=== PATIENT | female | born 1975 | race Caucasian/White ===

== ENCOUNTER 2017-10-02 15:13 | Emergency (ER) | payer OTHER ==
[2017-10-02 15:55] LABS: BILIRUBIN,URINE NEGATIVE (NEG); CLARITY,URINE CLEAR; COLOR,URINE YELLOW; GLUCOSE,URINE NEGATIVE (NEG); NITRITE,URINE NEGATIVE (NEG); PROTEIN,URINE NEGATIVE (NEG-TRACE); UROBILINOGEN,URINE 0.2 mg/dL (0.2 mg/dL)
[2017-10-02 16:05] LABS: ADD MAN DIFF? NO; BACTERIA,URINE 0 /HPF (0-FEW); RBC,URINE OCC /HPF (0-2); SQUAMOUS EPITHELIAL CELL,UR MOD /LPF; WBC,URINE OCC /HPF (0-4)
[2017-10-02] MEDS: KETOROLAC 30 MG/ML INJ. IV (16:10)
[2017-10-02] MEDS: IV NORMAL SALINE 1000ML BAG 1,000 ML IV (16:10)
[2017-10-02] MEDS: ONDANSETRON PF 4 MG/2 ML VIAL. IV (16:10)
[2017-10-02 16:15] LABS: BASO % 1 % (0-3); EOS % 1 % (0-3); HEMATOCRIT 40.6 % (36.0-47.0); LYMPH # 1.9 x10^3/uL (1.0-4.8); LYMPH % 28 % (24-48); MEAN CORPUSCULAR HEMOGLOBIN 30 pg (25-35); MEAN CORPUSCULAR HGB CONC 35 g/dL (31-37); MEAN CORPUSCULAR VOLUME 88 fL (79-100); MONO # 0.4 x10^3/uL (0.0-1.1); MONO % 6 % (0-9); NEUT # 4.4 x10^3uL (1.8-7.7); NEUT % 65 % (31-73); PLATELET COUNT 244 x10^3/uL (140-400); RED BLOOD COUNT 4.62 x10^6/uL (3.50-5.40); RED CELL DISTRIBUTION WIDTH 12.2 % (11.5-14.5); WHITE BLOOD COUNT 6.7 x10^3/uL (4.0-11.0)
[2017-10-02 16:21] LABS: ANION GAP 10 (6-14); BLOOD UREA NITROGEN 8 mg/dL (7-20); BUN/CREATININE RATIO 10 (6-20); CALCIUM 8.9 mg/dL (8.5-10.1); CARBON DIOXIDE 26 mmol/L (21-32); CHLORIDE 103 mmol/L (98-107); CREATININE 0.8 mg/dL (0.6-1.0); GLUCOSE 105 mg/dL (70-99); SODIUM 139 mmol/L (136-145)
[2017-10-02 16:27] LABS: ALBUMIN 3.8 g/dL (3.4-5.0); ALK PHOS 79 U/L (46-116); ALT (SGPT) 15 U/L (14-59); AST (SGOT) 12 U/L (15-37); TOTAL BILIRUBIN 0.2 mg/dL (0.2-1.0); TOTAL PROTEIN 7.6 g/dL (6.4-8.2)
== END 2017-10-02 19:25 | disposition home or self-care (01) ==
LOC: ER 15:13
DX: R10.9 Unspecified abdominal pain (principal); R30.0 Dysuria; R31.9 Hematuria, unspecified; R11.0 Nausea; Z87.442 Personal history of urinary calculi; Z90.710 Acquired absence of both cervix and uterus
CPT/HCPCS: 36415; 74176; 76700; 80053; 81001; 85025; 96361; 96374; 96375; 99285-25; J1885; J2405; J7030

== ENCOUNTER 2018-01-31 18:42 | Emergency (ER) | payer OTHER ==
[2018-01-31] MEDS: IV NORMAL SALINE 1000ML BAG 1,000 ML IV (20:05)
[2018-01-31] MEDS: KETOROLAC 30 MG/ML INJ. IV (20:05)
[2018-01-31 20:07] LABS: ADD MAN DIFF? NO
[2018-01-31 20:11] LABS: BASO % 0 % (0-3); EOS # 0.1 x10^3/uL (0.0-0.7); EOS % 1 % (0-3); HEMATOCRIT 37.5 % (36.0-47.0); HEMOGLOBIN 13.3 g/dL (12.0-15.5); LYMPH # 1.3 x10^3/uL (1.0-4.8); LYMPH % 23 % (24-48); MEAN CORPUSCULAR HEMOGLOBIN 31 pg (25-35); MEAN CORPUSCULAR HGB CONC 36 g/dL (31-37); MEAN CORPUSCULAR VOLUME 89 fL (79-100); MONO # 0.5 x10^3/uL (0.0-1.1); MONO % 8 % (0-9); NEUT # 3.9 x10^3uL (1.8-7.7); NEUT % 68 % (31-73); PLATELET COUNT 230 x10^3/uL (140-400); RED BLOOD COUNT 4.24 x10^6/uL (3.50-5.40); RED CELL DISTRIBUTION WIDTH 11.8 % (11.5-14.5); WHITE BLOOD COUNT 5.7 x10^3/uL (4.0-11.0)
[2018-01-31 20:18] LABS: ANION GAP 7 (6-14); BLOOD UREA NITROGEN 10 mg/dL (7-20); BUN/CREATININE RATIO 13 (6-20); CALCIUM 8.7 mg/dL (8.5-10.1); CARBON DIOXIDE 29 mmol/L (21-32); CHLORIDE 103 mmol/L (98-107); CREATININE 0.8 mg/dL (0.6-1.0); GLUCOSE 137 mg/dL (70-99); MONONUCLEOSIS PATIENT NEGATIVE (NEGATIVE); NEGATIVE OBC MONO NEG; POSITIVE OBC MONO POS; POTASSIUM 3.7 mmol/L (3.5-5.1); SODIUM 139 mmol/L (136-145)
[2018-01-31 20:24] LABS: ALBUMIN 3.3 g/dL (3.4-5.0); ALBUMIN/GLOBULIN RATIO 0.8 (1.0-1.7); ALK PHOS 56 U/L (46-116); ALT (SGPT) 24 U/L (14-59); AST (SGOT) 14 U/L (15-37); TOTAL BILIRUBIN 0.2 mg/dL (0.2-1.0); TOTAL PROTEIN 7.3 g/dL (6.4-8.2)
[2018-01-31 20:36] LABS: INFLUENZA A PATIENT NEGATIVE (NEGATIVE); INFLUENZA B PATIENT NEGATIVE (NEGATIVE); OBC FLU VALID
[2018-01-31 21:39] LABS: BILIRUBIN,URINE NEGATIVE (NEG); CLARITY,URINE CLEAR; COLOR,URINE YELLOW; GLUCOSE,URINE NEGATIVE (NEG); NITRITE,URINE NEGATIVE (NEG); PH,URINE 7.5; PROTEIN,URINE NEGATIVE (NEG-TRACE)
[2018-01-31 21:47] LABS: BACTERIA,URINE 0 /HPF (0-FEW); RBC,URINE 0 /HPF (0-2); SQUAMOUS EPITHELIAL CELL,UR MOD /LPF; WBC,URINE 0 /HPF (0-4)
[2018-02-01 10:39] LABS: NEGATIVE OBC STREP NEG; POSITIVE OBC STREP POS
== END 2018-01-31 22:23 | disposition home or self-care (01) ==
LOC: ER 18:42
DX: J02.9 Acute pharyngitis, unspecified (principal); Z87.442 Personal history of urinary calculi; Z88.8 Allergy status to other drugs, medicaments and biological substances
CPT/HCPCS: 36415; 80053; 81001; 85025; 86308; 87070; 87804; 87804-59; 87880; 96374; 99284-25; J1885; J7030

== ENCOUNTER → 2019-06-09 | Outpatient (CLI) | payer OTHER ==
[2018-01-31 19:11] VITALS: BP 130/82
[~2019-06-09] MED LIST: CYCL5TAB PO; ESCITALOPRAM OX10 MG PO; GABA600T7 PO; OXYC1TAB15 PO; PRED20TA PO
--- NOTE | 2019-06-09 17:36 | KCIC ---
3 view study of the right knee Clinical indications: Right knee pain. Progressing posterior right knee pain in the recent months. FINDINGS: No acute fracture or dislocation or lytic process is seen. No significant arthritic change of the patellofemoral joint compartment is seen. There is mild degenerative joint space narrowing without spurring of the medial tibiofemoral joint compartment. There is mild degenerative joint space narrowing with minimal degenerative spurring of the lateral tibiofemoral joint compartment. IMPRESSION: Mild primary degenerative osteoarthritis. Electronically signed by: Serge Mars MD (06/09/2019 5:33 PM) [place] [id number]
--- NOTE | 2019-06-10 09:47 | KCIC ---
EXAM: MRI RIGHT KNEE DATE: 06/09/2019 4:15 PM CLINICAL INDICATION: Right knee pain COMPARISON: None. TECHNIQUE: Multiplanar, multisequence MRI of the right knee was performed without contrast. FINDINGS: No significant right knee joint effusion. Trace Sullivan's cyst. ACL and PCL are intact. The MCL, fibular collateral ligament, biceps femoris, IT band are intact. The popliteus is normal in signal and morphology. Extensor mechanism is intact. Neutral patellar tracking. Edema and deformity of the suprapatellar fat pad may be seen with anterior knee pain/impingement. Medial meniscus: Intact Lateral meniscus: Intact No evidence for fracture or osteonecrosis. No significant chondral thinning. IMPRESSION: 1. Edema and deformity within the suprapatellar fat pad may be seen with anterior knee pain/impingement. 2. Otherwise, no evidence for internal derangement of the right knee. Electronically signed by: Hao Velasquez MD (06/10/2019 9:44 AM) [id number]
== END | disposition home or self-care (01) ==
LOC: KCIC 15:25
PROVIDERS: ATTEND Anesthesiology
DX: M17.11 Unilateral primary osteoarthritis, right knee (principal); M25.861 Other specified joint disorders, right knee; M25.461 Effusion, right knee; Z90.710 Acquired absence of both cervix and uterus
CPT/HCPCS: 73562; 73721

== ENCOUNTER → 2019-09-19 | Outpatient (CLI) | payer OTHER ==
[2018-01-31 19:11] VITALS: BP 130/82
--- NOTE | 2019-09-19 16:08 | KCIC ---
STUDY: MRI of the left knee without contrast INDICATION: Trauma to the anterior knee with persistent pain. COMPARISON: None. TECHNIQUE: Multiplanar MR imaging of the left knee performed without the use of intravenous or intra-articular contrast. FINDINGS: Menisci: Intact medial and lateral menisci. Cruciate ligaments: Intact ACL and PCL. Collateral ligaments: Intact. Tendons: No significant tendinosis or tear of the extensor complex. The additional tendons at the knee are unremarkable. Cartilage: Patellofemoral: Intact. Lateral compartment: Intact. Medial compartment: Intact. Bones: No acute fracture or marrow contusion. Miscellaneous: The TT-TG distance is within normal limits. Minimal edema-like signal of the suprapatellar fat pad. No significant joint effusion. Very small Sullivan's cyst. IMPRESSION: 1. No acute internal derangement of the left knee. 2. Very small Sullivan's cyst. 3. Minimal edema-like signal within the suprapatellar fat pad which was also noted within the contralateral knee on the June 09, 2019 exam. In the setting of a TT-TG distance that is within normal limits this is unlikely related to impingement and could be secondary to normal vascular signal or conceivably contusion given reported trauma to this region. Electronically signed by: PASCUAL JOY MD (09/19/2019 4:05 PM) [facility] [id number]
== END | disposition home or self-care (01) ==
LOC: KCIC MRI 12:12
PROVIDERS: ATTEND Registered Nurse
DX: M71.22 Synovial cyst of popliteal space [Baker], left knee (principal)
CPT/HCPCS: 73721

== ENCOUNTER 2019-12-07 18:41 | Emergency (ER) | payer OTHER ==
[~2019-12-07] VITALS: Ht 154.9 cm; Wt 63.6 kg
[2019-12-07] MEDS ORDERED: IV NORMAL SALINE 1000ML BAG 1,000 ML IV SCH (19:09)
[2019-12-07] MEDS ORDERED: ONDANSETRON PF 4 MG/2 ML VIAL. IV ONE (19:15)
[2019-12-07] MEDS ORDERED: KETOROLAC 30 MG/ML VIAL. IV ONE (19:15)
[2019-12-07 19:20] LABS: BILIRUBIN,URINE NEGATIVE (NEG); CLARITY,URINE CLEAR; COLOR,URINE YELLOW; NITRITE,URINE NEGATIVE (NEG); PROTEIN,URINE NEGATIVE (NEG-TRACE)
[2019-12-07 19:25] LABS: BACTERIA,URINE MODERATE /HPF (0-FEW); RBC,URINE 0 /HPF (0-2); SQUAMOUS EPITHELIAL CELL,UR MOD /LPF; WBC,URINE RARE /HPF (0-4)
--- NOTE | 2019-12-07 19:29 | PHYS DOC ---
Past Medical History Past Medical History: Depression, Kidney Stone, Other Additional Past Medical Histor: lower back - disc problems Past Surgical History: Appendectomy, Hysterectomy Smoking Status: Never Smoker Alcohol Use: None Drug Use: None Adult General Chief Complaint Chief Complaint: ABDOMINAL PAIN HPI HPI Patient is a 44 year old female with history of depression and kidney stone who presents with complaint of abdominal pain. Patient complaining of constant epig astric pressure pain discomfort feeling in her showed the last 4 days that getting worse today and rated her pain 8/10. Patient states she had nausea without vomiting, diarrhea, urinary symptom. Patient states she had temperature of 100.1 last night and took Tylenol a few hours ago. Patient denies cough and congestion, sore throat, chest pain and shortness of breath. Patient complaining of bloating abdomen even she had bowel movement last night and passing gas today. Review of Systems Review of Systems Constitutional: Denies fever or chills [] Eyes: Denies change in visual acuity, redness, or eye pain [] HENT: Denies nasal congestion or sore throat [] Respiratory: Denies cough or shortness of breath [] Cardiovascular: No additional information not addressed in HPI [] GI: Reports abdominal pain, nausea, denies vomiting, bloody stools or diarrhea [] : Denies dysuria or hematuria [] Musculoskeletal: Denies back pain or joint pain [] Integument: Denies rash or skin lesions [] Neurologic: Denies headache, focal weakness or sensory changes [] Endocrine: Denies polyuria or polydipsia [] All other systems were reviewed and found to be within normal limits, except as documented in this note. Current Medications Current Medications Current Medications Medications (Trade) Dose Ordered Sig/Cheryl Start Time Stop Time Status Last Admin Dose Admin Fentanyl Citrate (Fentanyl 2ml Vial) 50 mcg 1X ONCE 12/07/19 20:15 12/07/19 20:21 DC 12/07/19 20:27 50 MCG Iohexol (Omnipaque 300 Mg/ml) 75 ml 1X ONCE 12/07/19 20:30 12/07/19 20:31 DC 12/07/19 20:46 75 ML Ketorolac Tromethamine (Toradol 30mg Vial) 30 mg 1X ONCE 12/07/19 19:15 12/07/19 19:28 DC 12/07/19 19:33 30 MG Ondansetron HCl (Zofran) 4 mg 1X ONCE 12/07/19 19:15 12/07/19 19:28 DC 12/07/19 19:33 4 MG Sodium Chloride 1,000 ml @ 1,000 mls/hr Q1H 12/07/19 19:09 12/07/19 20:08 DC 12/07/19 19:32 1,000 MLS/HR Allergies Allergies Allergies Coded Allergies Type Severity Reaction Last Updated Verified promethazine Adverse Reaction Intermediate Anxiety 04/27/16 Yes Physical Exam Physical Exam Constitutional: Well developed, well nourished, mild distress, non-toxic a ppearance. [] HENT: Normocephalic, atraumatic. Eyes: PERRLA, EOMI, conjunctiva normal, no discharge. [] Neck: Normal range of motion, no tenderness, supple, no stridor. [] Cardiovascular:Heart rate regular rhythm, no murmur [] Lungs & Thorax: Bilateral breath sounds clear to auscultation [] Abdomen: Bowel sounds normal, soft, right upper quadrant guarding, no tenderness, no masses, no pulsatile masses. [] Skin: Warm, dry, no erythema, no rash. [] Back: No tenderness, no CVA tenderness. [] Extremities: No tenderness, no cyanosis, no clubbing, ROM intact, no edema. [] Neurologic: Alert and oriented X 3, no focal deficits noted. [] Psychologic: Affect normal, judgement normal, mood normal. [] Current Patient Data Vital Signs Vital Signs Date Time Temp Pulse Resp B/P (MAP) Pulse Ox O2 Delivery O2 Flow Rate FiO2 12/07/19 20:27 Room Air 12/07/19 18:55 98.3 100 10 133/84 (100) 99 98.3 Lab Values Laboratory Tests Test 12/07/19 18:56 12/07/19 19:22 Urine Collection Type Unknown Urine Color Yellow Urine Clarity Clear Urine pH 7.0 Urine Specific [place] 1.015 Urine Protein Negative mg/dL (NEG-TRACE) Urine Glucose (UA) Negative mg/dL (NEG) Urine Ketones (Stick) Negative mg/dL (NEG) Urine Blood Negative (NEG) Urine Nitrite Negative (NEG) Urine Bilirubin Negative (NEG) Urine Urobilinogen Dipstick 1.0 mg/dL (0.2 mg/dL) Urine Leukocyte Esterase Negative (NEG) Urine RBC 0 /HPF (0-2) Urine WBC Rare /HPF (0-4) Urine Squamous Epithelial Cells Mod /LPF Urine Bacteria Moderate /HPF (0-FEW) White Blood Count 6.0 x10^3/uL (4.0-11.0) Red Blood Count 4.07 x10^6/uL (3.50-5.40) Hemoglobin 12.5 g/dL (12.0-15.5) Hematocrit 35.5 % (36.0-47.0) L Mean Corpuscular Volume 87 fL (79-100) Mean Corpuscular Hemoglobin 31 pg (25-35) Mean Corpuscular Hemoglobin Concent 35 g/dL (31-37) Red Cell Distribution Width 12.2 % (11.5-14.5) Platelet Count 280 x10^3/uL (140-400) Neutrophils (%) (Auto) 52 % (31-73) Lymphocytes (%) (Auto) 39 % (24-48) Monocytes (%) (Auto) 7 % (0-9) Eosinophils (%) (Auto) 2 % (0-3) Basophils (%) (Auto) 1 % (0-3) Neutrophils # (Auto) 3.1 x10^3/uL (1.8-7.7) Lymphocytes # (Auto) 2.3 x10^3/uL (1.0-4.8) Monocytes # (Auto) 0.4 x10^3/uL (0.0-1.1) Eosinophils # (Auto) 0.1 x10^3/uL (0.0-0.7) Basophils # (Auto) 0.1 x10^3/uL (0.0-0.2) Sodium Level 141 mmol/L (136-145) Potassium Level 3.5 mmol/L (3.5-5.1) Chloride Level 104 mmol/L (98-107) Carbon Dioxide Level 29 mmol/L (21-32) Anion Gap 8 (6-14) Blood Urea Nitrogen 9 mg/dL (7-20) Creatinine 1.0 mg/dL (0.6-1.0) Estimated GFR (Cockcroft-Gault) 60.5 BUN/Creatinine Ratio 9 (6-20) Glucose Level 118 mg/dL (70-99) H Calcium Level 8.6 mg/dL (8.5-10.1) Total Bilirubin 0.2 mg/dL (0.2-1.0) Aspartate Amino Transferase (AST) 12 U/L (15-37) L Alanine Aminotransferase (ALT) 17 U/L (14-59) Alkaline Phosphatase 68 U/L (46-116) Total Protein 6.7 g/dL (6.4-8.2) Albumin 3.4 g/dL (3.4-5.0) Albumin/Globulin Ratio 1.0 (1.0-1.7) Lipase 135 U/L (73-393) Laboratory Tests 12/07/19 19:22 Laboratory Tests 12/07/19 19:22 EKG EKG [] Radiology/Procedures Radiology/Procedures [facility] [address] [place] [address] IMAGING REPORT [facility] [address] [place], [place] [id number] IMAGING REPORT Signed PATIENT: ACCOUNT: [id number] : 1975 LOCATION: ER AGE: 44 SEX: F EXAM STATUS: PRE ER ORD. PHYSICIAN: TONO MCDONNELL MD REASON: abd pain, RUQ pain PROCEDURE: ABDOMEN LTD ABDOMEN LTD History: Epigastric pain and bloating for 3 days greater today Comparison: None. Findings: Multiple sonographic images of the abdomen are submitted. Pancreas is not well-visualized due to bowel gas. There is segmental visualization of the inferior vena cava. Hepatic echogenicity is considered within normal limits, no focal hepatic lesion demonstrated. Visualized abdominal aortic caliber is within normal limits, incompletely seen due to bowel gas. Right lobe of the liver measured 16.7 cm longitudinal. There is contracted appearance of the gallbladder likely related to recent oral intake reportedly in the last hour. Gallbladder wall is considered somewhat prominent 0.36 cm although otherwise difficult to evaluate for intraluminal abnormality given contracted appearance. There is no demonstrable pericholecystic fluid. Right kidney measured 10.8 x 5.2 x 4.5, no hydronephrosis. There is small echogenic focus superiorly of the right kidney about 0.4 cm, small calculus not excluded. Common bile duct is within normal limits at 0.4 cm. Impression: 1. There is contracted appearance of the gallbladder which may be due to recent oral intake, otherwise difficult to evaluate for intraluminal abnormality. There is no pericholecystic fluid, degree of mild gallbladder wall thickening which may be due to contraction of the gallbladder. 2. There is a small echogenic focus of the superior right kidney, possibly a small nonobstructive calculus. Electronically signed by: Cele Jesus MD (12/07/2019 7:58 PM) [id number] DICTATED and SIGNED BY: CELE JESUS MD DATE: 12/07/191957 Signed PATIENT: ACCOUNT: [id number] : 1975 LOCATION: ER AGE: 44 SEX: F EXAM STATUS: REG ER ORD. PHYSICIAN: TONO MCDONNELL MD REASON: gastric pain with bloated abdomen, negativ US, OMNI 300, 75 ML IV PROCEDURE: CT ABD PELV W/ IV CONTRST ONLY CT ABD PELV W/ IV CONTRST ONLY Indication: Gastric pain, bloating Technique: Postcontrast CT imaging was performed of the abdomen pelvis, multiplanar reconstruction images submitted. No oral contrast was given. One or more of the following individualized dose reduction techniques were utilized for this examination: 1. Automated exposure control 2. Adjustment of the mA and/or kV according to patient size 3. Use of iterative reconstruction technique. Comparison: October 02, 2017 Findings: There is no significant abnormality of the limited visualized lung bases. No new focal abnormality is identified liver, pancreas, or spleen. Both kidneys enhance, no hydronephrosis. There is a hypodense lesion posteriorly of the mid right kidney on the order of 1.1 cm transverse, internal density measurements not of a simple cyst 50 Hounsfield units. Gallbladder is present without obvious intraluminal abnormality by CT. Stomach is not significantly distended, appearance of mild wall prominence more superiorly which may be due to incomplete distention. Small focus of hyperdensity in the gastric lumen is probably due to ingested contents. It would be difficult to exclude degree of proximal small bowel wall thickening in the left abdomen. There is no adrenal nodularity. Bowel is not significantly dilated. There is no free fluid or free air. There has been hysterectomy and appendectomy. There is retained stool greater of the right and transverse colon. Poorly characterized by this exam, there is appearance of extradural density in the anterior right lateral recess extending slightly above the L5-S1 intervertebral disc space, possible extrusion. IMPRESSION: 1. There is a hypodense lesion of the posterior left kidney. While this could be a complex cyst, small solid mass is not excluded. Ultrasound evaluation or nonemergent pre and postcontrast CT imaging is recommended. 2. Poorly characterized by this exam, there is some extradural density in the anterior right lateral recess extending slightly above the aortic L5-S1 intervertebral disc space, possibly an extrusion resulting in degree of right lateral recess stenosis and inferior narrowing of the right L5-S1 neural foramen. 3. It would be difficult to exclude degree of proximal small bowel wall thickening in the left abdomen as could be seen with enteritis in the appropriate clinical setting. Electronically signed by: Cele Jesus MD (12/07/2019 8:56 PM) [id number] DICTATED and SIGNED BY: CELE JESUS MD DATE: 12/07/192055 Course & Med Decision Making Course & Med Decision Making Pertinent Labs and Imaging studies reviewed. (See chart for details) Evaluation of patient in ER showed 44-year-old female patient with complaining of epigastric pain for several days that getting worse today. Patient felt better with treatment with IV fluid, Zofran, Toradol and fentanyl in ER. Gallbladder ultrasound did not show acute finding. CT abdomen pelvis did not show acute finding except for mild enteritis. Patient was informed about treatment of bloating and epigastric pain. I've spoken with the patient and/or caregivers. I've explained the patient's condition, diagnosis and treatment plan based on information available to me at this time. I've answered the patient's and/or caregivers questions and addressed any concerns. The patient and/or caregivers have a good understanding the patient's diagnosis, condition and treatment plan as can be expected at this point. Vital signs have been stabilized. The patient's condition is stable for discharge from the emergency department. The patient will pursue further outpatient evaluation with her primary care provider or other designated consulting physician as outlined in the discharge instructions. Patient and/or caregivers are agreeable to this plan of care and follow-up instructions have been explained in detail. The patient and/or care givers have received these instructions in written format and expressed understanding of these discharge instructions. The patient and her caregivers are aware that if any significant change in condition or worsening of symptoms should prompt him to immediately return to this of the closest emergency department. If an emergent department is not readily available I would encourage him to call 911. Katrin Disclaimer Dragon Disclaimer This electronic medical record was generated, in whole or in part, using a voice recognition dictation system. Departure Departure Impression: Primary Impression: Upper abdominal pain Additional Impression: Enteritis Disposition: HOME, SELF-CARE (At 2120) Condition: IMPROVED Referrals: ISMAEL SCHWAB MD (PCP) Patient Instructions: Abdominal Pain, Bloating Additional Instructions: Drink plenty of liquids Follow-up with your primary care physician in 3-5 days Return to ER if not getting better Do not eat solid food for the next 48 hours Thank you for visiting [facility]. We appreciate you trusting us with your care. If any additional problems come up don't hesitate to return to visit us. Please follow up with your primary care provider so they can plan additional care if needed and know about the problem that you had. If symptoms worsen come back to the Emergency Department. Any concerning symptoms that start such as chest pain, shortness of air, weakness or numbness on one side of the body, running high fevers or any other concerning symptoms return to the ER. Scripts Hydrocodone/Apap 5-325 (NORCO 5-325 TABLET) 1 Each Tablet 1 TAB PO PRN Q6HRS PRN for PAIN, #10 TAB 0 Refills Prov: TONO MCDONNELL MD 12/07/19 Ondansetron Hcl (ZOFRAN) 4 Mg Tablet 1 TAB PO PRN Q6-8HRS for nausea, #12 TAB Prov: TONO MCDONNELL MD 12/07/19 Problem Qualifiers TONO MCDONNELL MD Dec 07, 2019 19:29
[2019-12-07 19:31] LABS: BASO # 0.1 x10^3/uL (0.0-0.2); BASO % 1 % (0-3); EOS # 0.1 x10^3/uL (0.0-0.7); EOS % 2 % (0-3); HEMATOCRIT 35.5 % (36.0-47.0); HEMOGLOBIN 12.5 g/dL (12.0-15.5); LYMPH # 2.3 x10^3/uL (1.0-4.8); LYMPH % 39 % (24-48); MEAN CORPUSCULAR HEMOGLOBIN 31 pg (25-35); MEAN CORPUSCULAR HGB CONC 35 g/dL (31-37); MEAN CORPUSCULAR VOLUME 87 fL (79-100); MONO # 0.4 x10^3/uL (0.0-1.1); MONO % 7 % (0-9); NEUT # 3.1 x10^3/uL (1.8-7.7); NEUT % 52 % (31-73); PLATELET COUNT 280 x10^3/uL (140-400); RED BLOOD COUNT 4.07 x10^6/uL (3.50-5.40); RED CELL DISTRIBUTION WIDTH 12.2 % (11.5-14.5)
[2019-12-07 19:41] LABS: CALCIUM 8.6 mg/dL (8.5-10.1); GFR 60.5; POTASSIUM 3.5 mmol/L (3.5-5.1)
[2019-12-07 19:47] LABS: ALBUMIN 3.4 g/dL (3.4-5.0); TOTAL BILIRUBIN 0.2 mg/dL (0.2-1.0); TOTAL PROTEIN 6.7 g/dL (6.4-8.2)
--- NOTE | 2019-12-07 20:01 | RAD ---
ABDOMEN LTD History: Epigastric pain and bloating for 3 days greater today Comparison: None. Findings: Multiple sonographic images of the abdomen are submitted. Pancreas is not well-visualized due to bowel gas. There is segmental visualization of the inferior vena cava. Hepatic echogenicity is considered within normal limits, no focal hepatic lesion demonstrated. Visualized abdominal aortic caliber is within normal limits, incompletely seen due to bowel gas. Right lobe of the liver measured 16.7 cm longitudinal. There is contracted appearance of the gallbladder likely related to recent oral intake reportedly in the last hour. Gallbladder wall is considered somewhat prominent 0.36 cm although otherwise difficult to evaluate for intraluminal abnormality given contracted appearance. There is no demonstrable pericholecystic fluid. Right kidney measured 10.8 x 5.2 x 4.5, no hydronephrosis. There is small echogenic focus superiorly of the right kidney about 0.4 cm, small calculus not excluded. Common bile duct is within normal limits at 0.4 cm. Impression: 1. There is contracted appearance of the gallbladder which may be due to recent oral intake, otherwise difficult to evaluate for intraluminal abnormality. There is no pericholecystic fluid, degree of mild gallbladder wall thickening which may be due to contraction of the gallbladder. 2. There is a small echogenic focus of the superior right kidney, possibly a small nonobstructive calculus. Electronically signed by: Carlo Kumari MD (12/07/2019 7:58 PM) [id number]
[2019-12-07] MEDS ORDERED: fentaNYL PF VIAL 100 MCG/2 ML VIAL IVP ONE (20:15)
[2019-12-07] MEDS ORDERED: IOHEXOL 300 MG/ML 100ML VIAL. IV ONE (20:30)
--- NOTE | 2019-12-07 20:59 | RAD ---
CT ABD PELV W/ IV CONTRST ONLY Indication: Gastric pain, bloating Technique: Postcontrast CT imaging was performed of the abdomen pelvis, multiplanar reconstruction images submitted. No oral contrast was given. One or more of the following individualized dose reduction techniques were utilized for this examination: 1. Automated exposure control 2. Adjustment of the mA and/or kV according to patient size 3. Use of iterative reconstruction technique. Comparison: October 02, 2017 Findings: There is no significant abnormality of the limited visualized lung bases. No new focal abnormality is identified liver, pancreas, or spleen. Both kidneys enhance, no hydronephrosis. There is a hypodense lesion posteriorly of the mid right kidney on the order of 1.1 cm transverse, internal density measurements not of a simple cyst 50 Hounsfield units. Gallbladder is present without obvious intraluminal abnormality by CT. Stomach is not significantly distended, appearance of mild wall prominence more superiorly which may be due to incomplete distention. Small focus of hyperdensity in the gastric lumen is probably due to ingested contents. It would be difficult to exclude degree of proximal small bowel wall thickening in the left abdomen. There is no adrenal nodularity. Bowel is not significantly dilated. There is no free fluid or free air. There has been hysterectomy and appendectomy. There is retained stool greater of the right and transverse colon. Poorly characterized by this exam, there is appearance of extradural density in the anterior right lateral recess extending slightly above the L5-S1 intervertebral disc space, possible extrusion. IMPRESSION: 1. There is a hypodense lesion of the posterior left kidney. While this could be a complex cyst, small solid mass is not excluded. Ultrasound evaluation or nonemergent pre and postcontrast CT imaging is recommended. 2. Poorly characterized by this exam, there is some extradural density in the anterior right lateral recess extending slightly above the aortic L5-S1 intervertebral disc space, possibly an extrusion resulting in degree of right lateral recess stenosis and inferior narrowing of the right L5-S1 neural foramen. 3. It would be difficult to exclude degree of proximal small bowel wall thickening in the left abdomen as could be seen with enteritis in the appropriate clinical setting. Electronically signed by: Carlo Kumari MD (12/07/2019 8:56 PM) [id number]
[2019-12-07 21:13] VITALS: BP 122/77
[2019-12-07] MEDS ORDERED: HYDR-3164 PO (21:21)
[2019-12-07] MEDS ORDERED: ONDA4TAB7 PO (21:21)
== END 2019-12-07 21:30 | disposition home or self-care (01) ==
LOC: ER 18:41
DX: K52.9 Noninfective gastroenteritis and colitis, unspecified (principal); Z90.89 Acquired absence of other organs; Z90.710 Acquired absence of both cervix and uterus; Z87.442 Personal history of urinary calculi; Z88.8 Allergy status to other drugs, medicaments and biological substances
CPT/HCPCS: 36415; 74177; 76705; 80053; 81001; 83690; 85025; 87086; 96361; 96374; 96375; 99285; J1885; J2405; J3010; J7030; Q9967

== ENCOUNTER → 2020-11-29 | Outpatient (CLI) | payer OTHER ==
[~2020-11-29] MED LIST changes: +HYDR-3164 PO; +ONDA4TAB7 PO
--- NOTE | 2020-11-29 19:18 | KCIC ---
Bilateral digital screening mammograms: Reason for examination: Routine screening. Comparison is made to previous study dated 10/22/2017. Interpretation was made with the benefit of CAD. The skin and nipples show no abnormalities. No abnormal axillary lymph nodes are seen. The breast par enchyma is heterogeneously dense. (Breast density: Category C.) There are small parenchymal asymmetri es seen bilaterally which are new since previous exam. These may represent areas of superimposition o f tissues but further evaluation with coned compression views and ultrasound is recommended. There ar e no suspicious calcifications seen. Impression: Small new parenchymal asymmetries seen bilaterally which may be projectional but recommend further ev aluation with coned compression views and ultrasound. Your patient's mammogram demonstrates that she has dense breast tissue (breast density category C or D), which could hide abnormalities, and if she has other risk factors for breast cancer that have bee n identified, she might benefit from supplemental screening tests that may be suggested by you as her ordering physician. Dense breast tissue, in and of itself, is a relatively common condition. Therefo re, this information is not provided to cause undue concern, but rather to raise your awareness and t o promote discussion with your patient regarding the presence of other risk factors, in addition to d ense breast tissue. Your patient's mammography results will be sent to her. BI-RAD Category 0: Incomplete. Needs additional imaging evaluation. "Our facility is accredited by the [employer] Mammography Program." This patient's information has been entered into a reminder system for the patient to be notified wit h the results of her examination and a target date for the next mammogram. Electronically signed by: Crys Melgar MD (11/29/2020 7:15 PM) [email or web address]
== END ==
LOC: KCIC MAMMO 09:05
PROVIDERS: ATTEND Family Medicine
DX: Z12.31 Encounter for screening mammogram for malignant neoplasm of breast (principal)
CPT/HCPCS: 77067

== ENCOUNTER → 2020-12-22 | Outpatient (CLI) | payer OTHER ==
--- NOTE | 2020-12-22 14:12 | KCIC ---
Abdominal ultrasound without comparison for abdominal pain. Technique and findings: Real-time grayscale and color Doppler evaluation of the abdominal organs is p erformed. The aorta is nonaneurysmal. Visualized portions the pancreas are normal, with the distal marizol dy and tail not well seen due to overlying bowel gas. The IVC is patent. The liver measures 15.3 cm a nd is normal in appearance, with no intra or extrahepatic biliary ductal dilatation. Common bile duct measures 5 mm in diameter. The gallbladder is elongated, but free of any shadowing stones or sludge, and demonstrates normal wall thickness with no sonographic Martinez sign elicited. The right kidney me asures 10.6 x 5.2 cm and the left measures 10.7 x 4.5 cm. No hydronephrosis or perinephric fluid. On the right, there is at least one nonshadowing 6 mm echogenic focus within the cortex, likely a nonobs tructing renal calculus. On the left a similar-appearing abnormality measuring 5 mm is seen. The sple en measures 10.8 cm is normal. IMPRESSION: 1. Probable bilateral nonobstructing 5 to 6 mm renal calculi. 2. Elongated gallbladder which is nonspecific. No sonographic evidence of acute cholecystitis. Electronically signed by: Luis Beard MD (12/22/2020 2:09 PM) [id number]
== END ==
LOC: KCIC US 09:08
PROVIDERS: ATTEND Family Medicine
DX: N20.0 Calculus of kidney (principal)
CPT/HCPCS: 76700

== ENCOUNTER → 2021-01-04 | Outpatient (CLI) | payer OTHER ==
--- NOTE | 2021-01-04 16:27 | KCIC ---
Bilateral diagnostic digital mammograms: Reason for examination: Nodular parenchymal asymmetries on screening mammogram. Comparison is made to mammographic exam dated 11/29/2020. Coned compression views were obtained bilaterally in CC and oblique projections. In the right breast with the coned compression views, the area of nodularity appears less defined and probably represent some superimposed tissues. In the left breast, there continues to be some nodular ity which is most prominent in the anterior 3:00 position. There is also some nodularity again seen a t approximately the 2:00 B and 3:30 B positions. Further evaluation with ultrasound will follow. IMPRESSION: Continued presence of some nodularity in the left breast at the anterior 3:00 position and at the 2:0 0 and 3:30 B positions. Nodularity in the right breast probably represents superimposition of tissues . Ultrasound to follow. BI-RADS Category 0: Incomplete. Needs additional imaging evaluation. Bilateral breast ultrasound: Ultrasound examination was performed bilaterally in the areas of mammographic concern and at the axil la. In the right breast at the 10:00 B position, there is some dense fibroglandular tissue and some ducta l ectasia but no suspicious nodules are seen and no abnormal appearing lymph nodes are seen in the ri ght axilla. In the left breast at the 2:00 position 7 cm from the nipple, there is a small 4.6 mm hypoechoic fibr ocystic lesion in parallel orientation with no abnormal vascularity. In the 3:00 position 3 cm from t he nipple, there appears to be a small 5 mm nodule with angulated margins. Further evaluation with ul trasound-guided biopsy is recommended. In the 3:30 position 5.5 cm from the nipple, there is a small 5.4 mm septated cyst. No abnormal appearing lymph nodes are seen in the left axilla. IMPRESSION: No suspicious abnormality seen in the right breast. 5 mm nodule angulated margins at the 3:00 position of the left breast 3 cm from the nipple. Ultrasoun d-guided biopsy is recommended. Small septated cyst at the 3:30 position of the left breast. BI-RADS Category 4: Suspicious. These findings were discussed with the patient and Dr. Parmar's nurse practitioner, Lucretia Ragland, was notified about these findings by myself on 01/04/2021 at 1614. "Our facility is accredited by the [employer] Mammography [employer]." This patient's information has been entered into a reminder system for the patient to be notified wit h the results of her examination and a target date for the next mammogram. Electronically signed by: Crys Melgar MD (01/04/2021 4:24 PM) [id number]
== END ==
LOC: KCIC MAMMO 12:28
PROVIDERS: ATTEND Family Medicine
DX: N63.23 Unspecified lump in the left breast, lower outer quadrant (principal); N60.41 Mammary duct ectasia of right breast
CPT/HCPCS: 76641; 77066